=== PATIENT | male | born 1965 | race Caucasian/White ===

== ENCOUNTER 2016-07-30 12:35 | Emergency (ER) | payer BC ==
[~2016-07-30] VITALS: Ht 165.1 cm; Wt 86.5 kg
[~2016-07-30 12:35] MED LIST: OMEP20CA16 PO; OMEP40CA3 PO; PRAV40TA76 PO
[2016-07-30 12:56] VITALS: Ht 165.1 cm; Wt 86.5 kg
[2016-07-30] MEDS ORDERED: OMEP10CA4 PO (15:18)
[2016-07-30] MEDS ORDERED: SIMV20TA PO (15:19)
--- NOTE | 2016-07-30 15:40 | RADRPT ---
PROCEDURE: Chest Radiograph. CLINICAL INDICATION: Dizziness TECHNIQUE: Single frontal chest radiograph. COMPARISON: Chest radiograph 04/02/2015 FINDINGS: The cardiomediastinal silhouette is within normal limits. Lung volumes are decreased in there is ba silar atelectasis and central compressive change. No infiltrate or effusion is seen. The bones ar e intact. IMPRESSION: 1. Low lung volumes with basilar atelectasis and central compressive changes. RPTAT: HJBF .Peter Red MD, Date Time Electronically viewed and signed by .Peter Red MD, MD on 07/30/2016 15:40 .B/
[2016-07-30 15:47] VITALS: BP 128/93; PULSE 76; RESP 16
[2016-07-30 15:52] LABS: ADD SCAN DIFF NO
[2016-07-30 15:55] LABS: BASOPHILS % 0.3 % (0.0-2.0); EOSINOPHILS % 0.3 % (0.0-7.0); HEMATOCRIT 45.3 % (42.0-52.0); HEMOGLOBIN 15.1 g/dl (14.0-18.0); LYMPHOCYTES % 21.3 % (15.0-51.0); MEAN CORPUSCULAR HEMOGLOBIN 28.4 pg (29.0-33.0); MEAN CORPUSCULAR HGB CONC 33.3 g/dl (32.0-37.0); MEAN CORPUSCULAR VOLUME 85.3 fl (82.0-101.0); MEAN PLATELET VOLUME 10.8 fl (7.4-10.4); MONOCYTE # 0.5 10^3/ul (0.3-0.9); MONOCYTES % 5.2 % (0.0-11.0); NEUTROPHIL # 6.9 10^3/ul (1.6-7.5); NEUTROPHILS % 72.5 % (39.0-77.0); PLATELET COUNT 267 10^3/UL (140-415); RED BLOOD COUNT 5.31 10^6/ul (4.70-6.10); RED CELL DISTRIBUTION WIDTH 13.2 % (11.5-14.5); WHITE BLOOD COUNT 9.5 10^3/ul (4.8-10.8)
[2016-07-30 15:59] LABS: ADD UMIC NO; URINE BILIRUBIN (Dip) NEGATIVE (NEGATIVE); URINE BLOOD (Dip) NEGATIVE (NEGATIVE); URINE COLOR LT. YELLOW (YELLOW); URINE GLUCOSE (Dip) NEGATIVE (NEGATIVE); URINE KETONES (Dip) NEGATIVE (NEGATIVE); URINE LEUKOCYTE ESTERASE (Dip) NEGATIVE (NEGATIVE); URINE NITRITE (Dip) NEGATIVE (NEGATIVE); URINE TOTAL PROTEIN (Dip) NEGATIVE (NEGATIVE); URINE UROBILINOGEN (Dip) 0.2 E.U./dL (0.1-1.0)
[2016-07-30 16:03] LABS: CHLORIDE 102 mmol/L (97-110); POTASSIUM 4.4 mmol/L (3.5-5.1); SODIUM 144 mmol/L (135-144)
[2016-07-30 16:04] LABS: INR 0.91; PARTIAL THROMBOPLASTIN TIME 26.2 Sec (25.0-35.0); PROTIME 12.2 Sec (12.2-14.2)
[2016-07-30 16:06] LABS: ANION GAP 18 (8-16); BLOOD UREA NITROGEN 13 mg/dl (7-20); CARBON DIOXIDE 28 mmol/L (21-31); CREATININE 0.99 mg/dl (0.61-1.24); GLUCOSE 91 mg/dl (70-220)
[2016-07-30 16:07] LABS: CALCIUM 9.6 mg/dl (8.4-10.2)
[2016-07-30 16:18] LABS: TROPONIN-I < 0.012 ng/ml (0.00-0.12)
--- NOTE | 2016-07-30 16:32 | RADRPT ---
PROCEDURE: CT Brain without contrast. CLINICAL INDICATION: Vertigo TECHNIQUE: A multiplanar CT of the brain was performed on a CT scanner utilizing axial imaging fro m the skull base through the vertex without IV contrast. The CTDIvol is 39.54 mGy and the DLP is 63 4.23 mGycm. One or more of the following dose reduction techniques were utilized: Automated exposu re control, adjustment of the mA and/or kV according to patient size, use of iterative reconstructio n technique. COMPARISON: None FINDINGS: No evidence of intracranial hemorrhage or abnormal extra-axial fluid collection. The brain parenchyma is normal attenuation morphology with preservation of ordaz white differentiatio n and age appropriate size of the ventricles and subarachnoid spaces. The basal cisterns, posterior fossa contents, brainstem, craniocervical junction, orbits, pituitary axis, paranasal sinuses, mastoid air cells, and calvarium are unremarkable. IMPRESSION: 1. No intracranial hemorrhage or acute intracranial abnormality. RPTAT:AAJJ Physician Richard Date Time Electronically viewed and signed by Physician Richard on 07/30/2016 16:32 HELEN/
[2016-07-30] MEDS ORDERED: MECL-77 PO (16:45)
--- NOTE | 2016-07-30 17:01 | ERD ---
ER Documentation Chief Complaint Date/Time DATE: 07/30/16 TIME: 16:55 Chief Complaint dizziness, near syncope this afternoon HPI This 50-year-old male presents to the ER with dizziness. This is a sensation of the room is spinning. This occurred yesterday in the afternoon for a few hours. It then occurred again this morning. Currently has no symptoms. He did not experience any significant nausea or vomiting with the vertigo. He has had no weakness, focal or generalized. Denies any chest pain shortness of breath. Has felt sort of burning sensation in his right ear. He is undergoing dental work on the right side over the last month. He also took a Galarza yesterday prior to the symptoms but he is taken for dialysis before without vertigo.. ROS All systems reviewed and are negative except as per history of present illness. Medications Home Meds Active Scripts Meclizine Hcl* (Meclizine Hcl*) 25 Mg Tablet, 25 MG PO Q8H Y for DIZZINESS, #20 TAB Prov:ITZ AVILA DO 07/30/16 Reported Medications Simvastatin* (Zocor*) 20 Mg Tablet, 20 MG PO QHS, #30 TAB 07/30/16 Omeprazole* (Omeprazole*) 10 Mg Capsule.dr, 10 MG PO DAILY, #30 CAP 07/30/16 Discontinued Reported Medications Omeprazole* (Omeprazole*) 20 Mg Capsule.dr, 20 MG PO DAILY, CAP 04/02/15 Pravastatin Sodium* (Pravastatin Sodium*) 40 Mg Tablet, 40 MG PO HS, TAB 04/02/15 Discontinued Scripts Omeprazole* (Prilosec*) 40 Mg Capsule.dr, 40 MG PO DAILY for 30 Days, CAP Prov:TONI OLSEN MD 04/02/15 Allergies Allergies: Coded Allergies: No Known Allergy (Unverified , 07/30/16) PMhx/Soc History of Surgery: Yes (GALLBLADDER REMOVED) Anesthesia Reaction: No Hx Neurological Disorder: No Hx Respiratory Disorders: No Hx Cardiac Disorders: No Hx Psychiatric Problems: No Hx Miscellaneous Medical Probl: No Hx Alcohol Use: No Hx Substance Use: No Hx Tobacco Use: No Smoking Status: Never smoker Physical Exam Vitals Vital Signs Date Time Temp Pulse Resp B/P Pulse Ox O2 Delivery O2 Flow Rate FiO2 07/30/16 15:47 76 16 128/93 100 Room Air 07/30/16 12:56 98.0 77 18 135/84 98 Physical Exam Const: [] No distress Head: Atraumatic Eyes: Normal Conjunctiva ENT: Normal External Ears, Nose and Mouth. Neck: Full range of motion..~ No meningismus. Resp: Clear to auscultation bilaterally Cardio: Regular rate and rhythm, no murmurs Abd: Soft, non tender, non distended. Normal bowel sounds Skin: No petechiae or rashes Back: No midline or flank tenderness Ext: No cyanosis, or edema Neur: Awake and alert and oriented 3, no focal deficits Psych: Normal Mood and Affect Result Diagram: 07/30/16 1520 07/30/16 1520 Results 24 hrs Laboratory Tests Test 07/30/16 15:15 07/30/16 15:20 Urine Bilirubin NEGATIVE Urine Clarity CLEAR Urine Color LT. YELLOW Urine Glucose NEGATIVE% Urine Hemoglobin NEGATIVE Urine Ketones NEGATIVE Urine Leukocyte Esterase NEGATIVE Urine Nitrite NEGATIVE Urine Specific Waddy <=1.005 Urine Total Protein NEGATIVE Urine Urobilinogen 0.2 E.U./dL Urine pH 6.0 Activated Partial Thromboplast Time 26.2Sec Anion Gap 18 Basophils # 0.010^3/ul Basophils % 0.3% Blood Urea Nitrogen 13mg/dl Calcium Level 9.6mg/dl Carbon Dioxide Level 28mmol/L Chloride Level 102mmol/L Creatinine 0.99mg/dl Eosinophils # 0.010^3/ul Eosinophils % 0.3% Glucose Level 91mg/dl Hematocrit 45.3% Hemoglobin 15.1g/dl INR International Normalized Ratio 0.91 Lymphocytes # 2.010^3/ul Lymphocytes % 21.3% Mean Corpuscular Hemoglobin 28.4pg Mean Corpuscular Hemoglobin Concent 33.3g/dl Mean Corpuscular Volume 85.3fl Mean Platelet Volume 10.8fl Monocytes # 0.510^3/ul Monocytes % 5.2% Neutrophils # 6.910^3/ul Neutrophils % 72.5% Nucleated Red Blood Cells # 0.010^3/ul Nucleated Red Blood Cells % 0.0/100WBC Platelet Count 50000^3/UL Potassium Level 4.4mmol/L Prothrombin Time 12.2Sec Prothrombin Time Ratio 1.0 Red Blood Count 5.3110^6/ul Red Cell Distribution Width 13.2% Sodium Level 144mmol/L Troponin I < 0.012ng/ml White Blood Count 9.510^3/ul Procedures/MDM Patient with isolated vertigo. Inner ear because is likely. Is completely asymptomatic in the emergency room. Complete cardiac workup and head CT were done as patient says that he has a strong family history of strokes. Currently there is no signs of a stroke. Vertigo is only symptom is resolved on its own. He has no other neuro deficits. 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 Patient is results form to take with him. I am going to discharge him with instructions to obtain an ENT referral through his primary care doctor, as well as possible neurology consult. Discharging with Antivert. EKG interpretation: Normal sinus rhythm, rate of 90, left axis deviation, left anterior fascicular block, no ST or T-wave changes concerning for acute ischemia. patient financial services coordinator interpretation: Normal sinus rhythm without arrhythmia Chest x-ray interpretation: No acute process. I see no pneumonia, no pneumothorax, no pulmonary edema, no fractures CT head interpretation: No acute process. I see no hemorrhage, no mass-effect no midline shift no skull fracture Departure Diagnosis: Primary Impression: Vertigo Condition: Stable Patient Instructions: Inner Ear Problems: Causes of Dizziness (Vertigo), Vertigo, Unspecified Additional Instructions: Call your primary care doctor TOMORROW for a referral for an ENT doctor if vertigo continues. You may also want a neurology referral as well because of family stroke history. See the doctor sooner or return here if your condition worsens before your appointment time. ITZ AVILA DO Jul 30, 2016 17:00
== END 2016-07-30 17:05 | disposition home or self-care (01) ==
LOC: E/R 12:35
DX: R42 Dizziness and giddiness (principal); R40.2252 Coma scale, best verbal response, oriented, at arrival to emergency department; R40.2142 Coma scale, eyes open, spontaneous, at arrival to emergency department; R40.2362 Coma scale, best motor response, obeys commands, at arrival to emergency department
CPT/HCPCS: 36415; 70450; 71010; 80048; 81003; 84484; 85025; 85610; 85730; 93005